=== PATIENT | male | born 1980 | race Caucasian/White ===

== ENCOUNTER 2019-10-01 20:55 | Inpatient (IN) ==
[2019-10-01] MEDS ORDERED: SODIUM CHLORIDE 0.9% 1000ML 1,000 ML IV SCH (21:15)
[2019-10-01] MEDS ORDERED: ERTAPENEM SODIUM 10 ML IV STA (21:21)
[2019-10-01 21:30] LABS: Basophils # (auto) 0.01 K/uL (0-0.2); Basophils % (auto) 0.1 %; Eosinophils # (auto) 0.05 K/uL (0-0.5); Eosinophils % (auto) 0.7 %; Hematocrit (blood only) 38.7 % (42-52); Hemoglobin 13.5 g/dL (14.0-18.0); Immature Granulocytes # (auto) 0.02 K/uL (0.00-0.02); Immature Granulocytes % (auto) 0.3 %; Lymphocytes # (auto) 0.55 K/uL (1.2-3.4); Lymphocytes % (auto) 7.9 %; Mean Corpuscular Hemoglobin 29.8 pg (25-34); Mean Corpuscular Hgb Conc 34.9 g/dL (32-36); Mean Corpuscular Volume 85.4 fL (80-100); Mean Platelet Volume 11.7 fL (7.4-10.4); Monocytes # (auto) 0.06 K/uL (0.11-0.59); Monocytes % (auto) 0.9 %; Neutrophils # (auto) 6.28 K/uL (1.4-6.5); Neutrophils % (auto) 90.1 %; Platelet Count 132 K/uL (130-400); RDW Coefficient of Variation 13.2 % (11.5-14.5); Red Blood Count 4.53 M/uL (4.7-6.1); White Blood Count 6.97 K/uL (4.8-10.8)
[2019-10-01 21:39] LABS: Appearance Urine Cloudy (Clear); Bacteria Urine Automated 3+ (Negative); Bilirubin Urine Negative (Negative); Blood Urine 3+ (Negative); Color Urine Orange; Glucose Urine UA Negative (Negative); Ketones Urine Negative (Negative); Leukocyte Esterase Urine 3+ (Negative); Nitrite Urine Negative (Negative); Protein Urine 2+ (Negative); RBC Urine Automated >30 /hpf (0-4); Specific Gravity Urine 1.014 (1.000-1.030); Urobilinogen Urine Negative (Negative); WBC Urine Automated >30 /hpf (0-5); pH Urine 6.5 (4.5-7.5)
[2019-10-01 21:41] LABS: Partial Thromboplastin Ratio 0.9; Partial Thromboplastin Time 24.3 Seconds (21.0-31.0)
[2019-10-01 21:51] LABS: Albumin Globulin Ratio 1.1 (0.9-2); Albumin Level 3.5 gm/dl (3.4-5.0); Bilirubin,Total 0.9 mg/dl (0.2-1); Calcium 8.6 mg/dl (8.5-10.1); Creatinine Clr Calc Pharmacy 122.6 ml/min; Est GFR (African American) 112.9; Est GFR (Non-African American) 97.4; Globulin 3.3 gm/dl (2.5-4.0); Magnesium 1.5 mg/dl (1.8-2.4); Potassium 3.6 mmol/L (3.5-5.1); Total Protein 6.8 gm/dl (6.4-8.2)
[2019-10-01] MEDS ORDERED: MoRPHine SULFATE 4 MG/ML 1 ML CARP\\VIAL IV STA (22:53)
[2019-10-01] MEDS ORDERED: SODIUM CHLORIDE 0.9% 1000ML 1,000 ML IV ONE (22:55)
--- NOTE | 2019-10-01 23:57 | Emergency Department Note ---
History of Present Illness General Chief complaint: Hematuria Source: patient Mode of arrival: EMS Limitations: no limitations History of Present Illness Provider complaint: Fever and hematuria Maximum Pain Intensity: 10 This is a 39-year-old male who presents to the ED with a chief complaint of fever and hematuria as well as some abdominal pain. The patient states that he was seen by his PCP yesterday at the [facility] and found to have a bladder mass on CT scan. Today he was in [place] and had a cystoscopy with biopsy. This was around 2:45 PM today. The patient states that he developed chills and fever as well as hematuria tonight when he got home. He had a temperature of 102.5 per EMS. The patient was transported by EMS and found to have heart rates in the 130s and a little confusion. The patient presents by EMS. He has no other complaints at this time. Home Medications Home Medications Medication Instructions Recorded Confirmed Type cholecalciferol (vitamin D3) 0 mcg PO DAILY 10/01/19 10/01/19 History [Vitamin D3] cranberry 500 mg PO DAILY 10/01/19 10/01/19 History cyanocobalamin (vitamin B-12) 0 mcg PO DAILY 10/01/19 10/01/19 History [Vitamin B-12] hydrocodone-acetaminophen 1 tab PO DIRECTED PRN 10/01/19 10/01/19 History ondansetron HCl 4 mg PO DIRECTED PRN 10/01/19 10/01/19 History tamsulosin 0.4 mg PO DAILY 10/01/19 10/01/19 History Allergies Allergy/AdvReac Type Severity Reaction Status Date / Time bee venom protein (honey bee) Allergy Severe ANAPHYLAXIS Verified 10/01/19 23:36 Penicillins Allergy Severe projectile Verified 10/01/19 23:36 vomiting Past Med/Surg History Medical History Kidney stone on right side Family History Other No significant family history Social History Smoking Status: Former smoker Preferred Language: Vietnamese Feels Safe at Home: Yes Review of Systems A total of 10 systems reviewed and were otherwise negative Physical Exam Vital Signs Vital Signs - 24 hr 10/01/19 21:05 10/01/19 21:07 10/01/19 21:15 Temperature Temperature Source Pulse Rate 128 H 123 H 126 H Pulse Rate from SpO2 Sensor 126 H 124 H 128 H Respiratory Rate 20 22 Respiratory Effort / Characteristics Blood Pressure 139/79 130/88 Blood Pressure Mean 94 98 Pulse Oximetry 96 96 96 Oxygen Delivery Method Sepsis Recent Fever Within 48 Hours Sepsis New/Unexplained Change in Mental Status Sepsis Action Taken by Nursing 10/01/19 21:16 10/01/19 21:25 10/01/19 21:30 Temperature 39.2 C H Temperature Source Oral Pulse Rate 127 H 120 H 126 H Pulse Rate from SpO2 Sensor 121 H 126 H Respiratory Rate 21 20 21 Respiratory Effort / Characteristics Non-Labored Spontaneous Blood Pressure 139/79 125/71 Blood Pressure Mean 99 76 Pulse Oximetry 96 99 95 Oxygen Delivery Method Room Air Sepsis Recent Fever Within 48 Hours Yes Sepsis New/Unexplained Change in Mental Status No Sepsis Action Taken by Nursing Previously Notified 10/01/19 21:31 10/01/19 21:45 10/01/19 21:46 Temperature Temperature Source Pulse Rate 127 H 121 H 125 H Pulse Rate from SpO2 Sensor 127 H 122 H 126 H Respiratory Rate 21 24 24 Respiratory Effort / Characteristics Blood Pressure 129/75 Blood Pressure Mean 84 Pulse Oximetry 94 96 96 Oxygen Delivery Method Sepsis Recent Fever Within 48 Hours Sepsis New/Unexplained Change in Mental Status Sepsis Action Taken by Nursing 10/01/19 22:00 10/01/19 22:01 10/01/19 22:15 Temperature Temperature Source Pulse Rate 123 H 124 H 117 H Pulse Rate from SpO2 Sensor 122 H 125 H 118 H Respiratory Rate 19 20 19 Respiratory Effort / Characteristics Blood Pressure 119/71 125/72 Blood Pressure Mean 101 84 Pulse Oximetry 95 95 95 Oxygen Delivery Method Sepsis Recent Fever Within 48 Hours Sepsis New/Unexplained Change in Mental Status Sepsis Action Taken by Nursing 10/01/19 22:16 10/01/19 23:00 10/01/19 23:16 Temperature 39.1 C H Temperature Source Oral Pulse Rate 116 H 115 H Pulse Rate from SpO2 Sensor 115 H Respiratory Rate 18 14 Respiratory Effort / Characteristics Blood Pressure 117/75 Blood Pressure Mean 84 Pulse Oximetry 94 93 Oxygen Delivery Method Sepsis Recent Fever Within 48 Hours Sepsis New/Unexplained Change in Mental Status Sepsis Action Taken by Nursing CONSTITUTIONAL/VITAL SIGNS: Reviewed / noted above. GENERAL: Non-toxic in appearance. INTEGUMENTARY: Warm, dry, and [place]. HEAD: Normocephalic. EYES: without scleral icterus or trauma. ENT/OROPHARYNX: clear and moist. LYMPHADENOPATHY/NECK: Is supple without lymphadenopathy or meningismus. RESPIRATORY: Lungs clear and equal. CARDIOVASCULAR: Tachycardic rate and regular rhythm GI/ABDOMEN: Soft and mildly tender in the suprapubic area. No organomegaly or pulsatile mass. No rebound or guarding. Normal bowel sounds. EXTREMITIES: Warm and well perfused. BACK: No CVA tenderness. NEUROLOGICAL: Intact without focal deficits. PSYCHIATRIC: normal affect. MUSCULOSKELETAL: Normally developed with good muscle tone. TRIAGE NURSING DOCUMENTATION REVIEWED. Course Administered Medications Discontinued Medications Sodium Chloride (Nss 1000ml) 1,000 mls @ 999 mls/hr IV .Q1H1M TEREZA Stop: 10/01/19 22:15 Last Infusion: 10/01/19 22:54 Dose: 0 mls/hr Documented by: [id number] Admin: 10/01/19 21:53 Dose: 999 mls/hr Documented by: [id number] Ertapenem (Invanz) 10 mls @ 2 mls/min IV NOW STA Stop: 10/01/19 21:25 Last Admin: 10/01/19 21:53 Dose: 2 mls/min Documented by: [id number] Sodium Chloride (Nss 1000ml) 1,000 mls @ 999 mls/hr IV .Q1H1M ONE Stop: 10/01/19 23:55 Last Admin: 10/01/19 23:05 Dose: 999 mls/hr Documented by: [id number] Morphine Sulfate (Morphine Sulfate 4 Mg/Ml 1 Ml Carp\Vial) 4 mg IV NOW STA Stop: 10/01/19 22:54 Last Admin: 10/01/19 23:05 Dose: 4 mg Documented by: [id number] Critical Care Time Critical Care Time: Yes Total Critical Care Time: 30 I have personally spent 30 minutes of critical care time in the direct management of this patient. This includes bedside care, interpretation of diagnostic studies, and testing, discussion with consultants, patient, and family members, and other required patient management activities. This 30 minutes is in excess of all separately billable procedures. Medical Decision Making Differential Diagnosis Differential includes viral illness, influenza, streptococcal pharyngitis, meningitis, pneumonia, sinusitis, UTI, pyelonephritis, otitis media. Medical Records Attestation: I reviewed the patient's medical records. Home Medications Current Medication List: was personally reviewed by me Laboratory Data Attestation: I reviewed the patient's lab results. Result diagrams: 10/01/19 21:15 10/01/19 21:15 Lab Results 10/01/19 10/01/19 10/01/19 Range/Units 21:10 21:15 21:15 WBC 6.97 (4.8-10.8) K/uL RBC 4.53 L (4.7-6.1) M/uL Hgb 13.5 L (14.0-18.0) g/dL Hct 38.7 L (42-52) % MCV 85.4 (80-100) fL MCH 29.8 (25-34) pg MCHC 34.9 (32-36) g/dL RDW Std Deviation 41.0 (36.4-46.3) fL RDW Coeff of Piotr 13.2 (11.5-14.5) % Plt Count 132 (130-400) K/uL MPV 11.7 H (7.4-10.4) fL Immature Gran % (Auto) 0.3 % Neut % (Auto) 90.1 % Lymph % (Auto) 7.9 % Dukes % (Auto) 0.9 % Eos % (Auto) 0.7 % Baso % (Auto) 0.1 % Neut # (Auto) 6.28 (1.4-6.5) K/uL Lymph # (Auto) 0.55 L (1.2-3.4) K/uL Dukes # (Auto) 0.06 L (0.11-0.59) K/uL Eos # (Auto) 0.05 (0-0.5) K/uL Baso # (Auto) 0.01 (0-0.2) K/uL Immature Gran # (Auto) 0.02 (0.00-0.02) K/uL PT 11.0 (9.0-12.0) Seconds INR 1.0 (0.9-1.1) APTT 24.3 (21.0-31.0) Seconds PTT Ratio 0.9 Sodium (136-145) mmol/L Potassium (3.5-5.1) mmol/L Chloride (98-107) mmol/L Carbon Dioxide (21-32) mmol/L Anion Gap (3-11) BUN (7-18) mg/dl Creatinine (0.6-1.4) mg/dl Est Cr Clr Drug Dosing ml/min Est GFR ( Amer) Est GFR (Non-Af Amer) BUN/Creatinine Ratio (10-20) Glucose (70-99) mg/dl Lactate (0.4-2.0) mmol/L Calcium (8.5-10.1) mg/dl Magnesium (1.8-2.4) mg/dl Total Bilirubin (0.2-1) mg/dl AST (15-37) U/L ALT (12-78) U/L Alkaline Phosphatase (45-117) U/L Total Protein (6.4-8.2) gm/dl Albumin (3.4-5.0) gm/dl Globulin (2.5-4.0) gm/dl Albumin/Globulin Ratio (0.9-2) Urine Color [place] Urine Appearance Cloudy A (Clear) Urine pH 6.5 (4.5-7.5) Ur Specific [place] 1.014 (1.000-1.030) Urine Protein 2+ H (Negative) Urine Glucose (UA) Negative (Negative) Urine Ketones Negative (Negative) Urine Blood 3+ H (Negative) Urine Nitrite Negative (Negative) Urine Bilirubin Negative (Negative) Urine Urobilinogen Negative (Negative) Ur Leukocyte Esterase 3+ H (Negative) Urine WBC (Auto) >30 H (0-5) /hpf Urine RBC (Auto) >30 H (0-4) /hpf U Hyaline Cast (Auto) 1-5 (0-5) /lpf U Epithel Cells (Auto) 5-10 H (0-5) /lpf Urine Bacteria (Auto) 3+ H (Negative) 10/01/19 10/01/19 Range/Units 21:15 21:15 WBC (4.8-10.8) K/uL RBC (4.7-6.1) M/uL Hgb (14.0-18.0) g/dL Hct (42-52) % MCV (80-100) fL MCH (25-34) pg MCHC (32-36) g/dL RDW Std Deviation (36.4-46.3) fL RDW Coeff of Piotr (11.5-14.5) % Plt Count (130-400) K/uL MPV (7.4-10.4) fL Immature Gran % (Auto) % Neut % (Auto) % Lymph % (Auto) % Dukes % (Auto) % Eos % (Auto) % Baso % (Auto) % Neut # (Auto) (1.4-6.5) K/uL Lymph # (Auto) (1.2-3.4) K/uL Dukes # (Auto) (0.11-0.59) K/uL Eos # (Auto) (0-0.5) K/uL Baso # (Auto) (0-0.2) K/uL Immature Gran # (Auto) (0.00-0.02) K/uL PT (9.0-12.0) Seconds INR (0.9-1.1) APTT (21.0-31.0) Seconds PTT Ratio Sodium 135 L (136-145) mmol/L Potassium 3.6 (3.5-5.1) mmol/L Chloride 105 (98-107) mmol/L Carbon Dioxide 24 (21-32) mmol/L Anion Gap 6.0 (3-11) BUN 13 (7-18) mg/dl Creatinine 0.98 (0.6-1.4) mg/dl Est Cr Clr Drug Dosing 122.6 ml/min Est GFR ( Amer) 112.9 Est GFR (Non-Af Amer) 97.4 BUN/Creatinine Ratio 13.0 (10-20) Glucose 108 H (70-99) mg/dl Lactate 1.7 (0.4-2.0) mmol/L Calcium 8.6 (8.5-10.1) mg/dl Magnesium 1.5 L (1.8-2.4) mg/dl Total Bilirubin 0.9 (0.2-1) mg/dl AST 17 (15-37) U/L ALT 33 (12-78) U/L Alkaline Phosphatase 79 (45-117) U/L Total Protein 6.8 (6.4-8.2) gm/dl Albumin 3.5 (3.4-5.0) gm/dl Globulin 3.3 (2.5-4.0) gm/dl Albumin/Globulin Ratio 1.1 (0.9-2) Urine Color Urine Appearance (Clear) Urine pH (4.5-7.5) Ur Specific [place] (1.000-1.030) Urine Protein (Negative) Urine Glucose (UA) (Negative) Urine Ketones (Negative) Urine Blood (Negative) Urine Nitrite (Negative) Urine Bilirubin (Negative) Urine Urobilinogen (Negative) Ur Leukocyte Esterase (Negative) Urine WBC (Auto) (0-5) /hpf Urine RBC (Auto) (0-4) /hpf U Hyaline Cast (Auto) (0-5) /lpf U Epithel Cells (Auto) (0-5) /lpf Urine Bacteria (Auto) (Negative) Imaging Data Attestation: I personally reviewed and interpreted this imaging study as fol lows: My Impression: Chest x-ray: Per my interpretation there is no acute disease no pneumothorax. No pneumonia. ECG Data Attestation: I personally reviewed and interpreted this ECG as follows: Indication: + weakness Rate (beats per minute): 126 Rhythm: + sinus tachycardia ECG Intervals/blocks: + Normal QT-c ECG ST segments: no ST elevation ECG Findings: no PVCs MDM Narrative The patient presents with a fever and tachycardia after having a biopsy of the bladder earlier today. His symptoms are consistent with urosepsis and bacteremia. The patient was empirically treated with ertapenem. He was given a liter of IV fluids normal saline prehospital. He was given 2 L of normal saline here. The patient will be seen by the hospitalist for further inpatient evaluation and care. He was evaluated several times during his ED stay to ascertain stability. Impression & Plan Sepsis, Urinary tract infection Discharge Plan Visit Data Chief Complaint: Hematuria ED Provider: Marco Antonio Andrews Discharge Problem: Sepsis, Urinary tract infection Patient Disposition: Being Evaluated by Hospitalist Forms Stand Alone Forms: My [facility] Prescriptions Prescriptions: No Action hydrocodone-acetaminophen 5-325 mg tablet 1 tab PO DIRECTED PRN (Reason: Pain) RF: 0 ondansetron HCl 4 mg tablet 4 mg PO DIRECTED PRN (Reason: Nausea) RF: 0 cyanocobalamin (vitamin B-12) [Vitamin B-12] 1,000 mcg Tablet 0 mcg PO DAILY RF: 0 tamsulosin 0.4 mg capsule 0.4 mg PO DAILY RF: 0 cranberry 500 mg Capsule 500 mg PO DAILY RF: 0 cholecalciferol (vitamin D3) [Vitamin D3] 25 mcg (1,000 unit) Capsule 0 mcg PO DAILY RF: 0 Referrals Referrals: PCP,NO [Primary Care Provider] - Discharge Problem: Sepsis Qualifiers: Sepsis type: sepsis due to unspecified organism Sepsis acute organ dysfunction status: with acute organ dysfunction Severe sepsis acute organ dysfunction type: encephalopathy Severe sepsis shock status: without septic shock Qualified Code(s): A41.9 - Sepsis, unspecified organism Urinary tract infection Qualifiers: Urinary tract infection type: acute cystitis Hematuria presence: with hematuria Qualified Code(s): N30.01 - Acute cystitis with hematuria
[2019-10-02] MEDS ORDERED: IBUPROFEN 200 MG TAB PO ONE (00:25)
[2019-10-02] MEDS ORDERED: HYDROmorphone INJ 0.5 MG/0.5 ML SYR IV STA (00:38)
[2019-10-02] MEDS ORDERED: SODIUM CHLORIDE 0.9% 500 ML IV SCH (00:45)
--- NOTE | 2019-10-02 02:37 | History and Physical Report ---
DATE OF ADMISSION: 10/01/2019 CHIEF COMPLAINT: Sepsis. HISTORY OF PRESENT ILLNESS: This is a 39-year-old male with past medical history significant for anxiety, panic disorder, and kidney stones. The patient has history of kidney stones, came to family doctor on 09/30/2019 because of right flank pain. The patient states on Saturday morning, he woke up, he noticed some pinkish urine and on Saturday, he had severe right flank pain and on Saturday started having blood clots and went to PCP's office and CT scan of the abdomen and pelvis was done which showed nonobstructive nephrolithiasis, dilated left ureter to the level of urinary bladder, limited assessment to the stricture, possible focal mass of the left ureterovesical junction. Follow up cystoscopy and ureteroscopy recommended, so the patient on 10/01/2019 went to [place] and had a cystoscopy done. The bladder mucosa showed several areas with raised lesions of unclear significance. Several areas of erythema were noted in the bladder mucosa. Ureteral orifices are of normal position and configuration and the bladder washing was performed to obtain cytology specimen and formal endoscopic evaluation in the Operating Room was recommended and the patient was discharged home. The patient states after coming home, he suddenly felt that he is going to . He could not move. He was passing out in and out and also had severe pain in the right flank region. Finally was able to call and was brought in here. T-max is 39.4. He is tachycardic and the heart rates in the 120s. Blood pressure was okay. White count was okay. Magnesium was 1.5. Urine was positive for +3 blood and +3 leukocyte esterase and +3 bacteria. Chest x-ray was okay. The patient was started on Invanz because of ALLERGIC TO PENICILLIN. Given fluids and given morphine for pain. States his pain is coming back. Currently resting comfortably. Still spiking temperatures, getting Motrin by the ER. The patient complains of some mild headache and dizziness and some blurred visions and some shortness of breath attributes for panic disorder. He has some runny nose attributes to allergies. He has cough going on for last 1 month. Denies any earache. No sore throat. No loss of sense of smell or taste. During this episode, he had 1 episode of chest pain, but that is resolved now Has burning micturition. In the ER, his urine was clear. Normal bladder movements. Currently no rash, no swelling in the legs. The patient says one of his family member had COVID and he was exposed to him before he was diagnosed, but it was about 6 weeks ago. ALLERGIES: BEE VENOM, PENICILLINS. PAST MEDICAL HISTORY: As mentioned above. PAST SURGICAL HISTORY: Hand surgery, cystoscopy. MEDICATIONS: Currently the patient is on vitamin D, cranberry 500 mg p.o. daily, vitamin B12 1000 mcg p.o. daily, hydrocodone/acetaminophen p.r.n., Zofran 4 mg p.r.n., Flomax 0.4 mg p.o. daily. FAMILY HISTORY: Significant for maternal grandfather of heart attack. SOCIAL HISTORY: . Former smoker, quit in 02/2019. Alcohol, 8-9 drinks per week. No drug use. REVIEW OF SYMPTOMS: As per HPI. Rest of review of symptoms negative. PHYSICAL EXAMINATION: GENERAL: The patient is of moderate build, not in acute distress. VITAL SIGNS: T-max 39.4, pulse 112, respiratory rate 19, blood pressure 115/66, oxygen 94% on room air. HEENT: No pallor, no icterus. NECK: No JVD, no neck masses. CARDIOVASCULAR SYSTEM: S1, S2 heard. Regular rate and rhythm. No murmur, no gallop. RESPIRATORY SYSTEM: Normal AP diameter. No accessory muscle use. No wheezing, no crackles. ABDOMEN: Soft, bowel sounds present. Mild diffuse discomfort. No guarding, no rigidity. No distention. CENTRAL NERVOUS SYSTEM: Cranial nerves II-XII grossly intact, nonfocal. EXTREMITIES: No edema, no erythema. LABORATORY DATA: WBC 6.9, hb 13.5, hematocrit 38.7, platelets 132. PT 11, INR 1, APTT 24.3. Sodium 135, potassium 3.6, chloride 105, bicarb 24, BUN 13, creatinine 0.9, serum glucose 108, lactate 1.7, calcium 8.6, magnesium 1.5. Total bilirubin 0.9, AST 17, ALT 33, alkaline phosphatase 79. Urinalysis: Cloudy, +3 blood, +3 leukocyte esterase, +3 bacteria. IMAGING: Chest x-ray: No acute findings seen. EKG: Sinus tachycardia, rate of 123, no previous ECGs available. ASSESSMENT AND PLAN: This is a 39-year-old male who presents with sepsis. 1. Sepsis . Meets criteria with tachycardia, temp spike, positive UA. Had a cystoscopy today. THE PATIENT IS ALLERGIC TO PENICILLIN. Received Invanz in the ER. We will continue with Invanz and vancomycin until cultures are back. Aggressive IV fluids. Lactate was normal. Closely monitor in the tele floor. Continue his Flomax. 2. History of kidney stones, on Flomax. Follow with Urology. 3. Bladder lesions. Plan for endoscopic evaluation in the Operating Room by Urology. 4. Deep venous thrombosis prophylaxis. SCDs for now. DISPOSITION: Closely monitor in tele floor. Level 1 full code. MTDD
[2019-10-02] MEDS ORDERED: ONDANSETRON INJ 2 MG/ML 2 ML VIAL IV PRN (02:49)
[2019-10-02] MEDS ORDERED: VANCOMYCIN HCL 1,000 MG in SODIUM CHLORIDE 0.9% 250 ML IV SCH (02:49)
[2019-10-02] MEDS ORDERED: VANCOMYCIN CONSULT ACTIVE PRN (02:49)
[2019-10-02] MEDS ORDERED: ERTAPENEM CONSULT ACTIVE PRN (02:53)
[2019-10-02] MEDS: SODIUM CHLORIDE 0.9% 1000ML 1,000 ML IV SCH ×3 (03:13→19:06)
[2019-10-02] MEDS: HYDROmorphone INJ 0.5 MG/0.5 ML SYR IV PRN ×3 (03:16→13:11)
[2019-10-02] MEDS ORDERED: VANCOMYCIN HCL 2,250 MG in SODIUM CHLORIDE 0.9% 500 ML IV SCH (03:30)
[2019-10-02 06:29] LABS: Basophils # (auto) 0.01 K/uL (0-0.2); Basophils % (auto) 0.1 %; Eosinophils # (auto) 0.01 K/uL (0-0.5); Eosinophils % (auto) 0.1 %; Hematocrit (blood only) 40.8 % (42-52); Hemoglobin 13.6 g/dL (14.0-18.0); Immature Granulocytes # (auto) 0.03 K/uL (0.00-0.02); Immature Granulocytes % (auto) 0.3 %; Lymphocytes # (auto) 0.57 K/uL (1.2-3.4); Lymphocytes % (auto) 6.1 %; Mean Corpuscular Hemoglobin 29.1 pg (25-34); Mean Corpuscular Hgb Conc 33.3 g/dL (32-36); Mean Corpuscular Volume 87.4 fL (80-100); Monocytes # (auto) 0.36 K/uL (0.11-0.59); Monocytes % (auto) 3.9 %; Neutrophils # (auto) 8.29 K/uL (1.4-6.5); Neutrophils % (auto) 89.5 %; Platelet Count 123 K/uL (130-400); RDW Coefficient of Variation 13.3 % (11.5-14.5); RDW Standard Deviation 42.3 fL (36.4-46.3); Red Blood Count 4.67 M/uL (4.7-6.1); White Blood Count 9.27 K/uL (4.8-10.8)
[2019-10-02 07:01] LABS: BUN Creatinine Ratio 10.1 (10-20); Calcium 7.9 mg/dl (8.5-10.1); Creatinine Clr Calc Pharmacy 125.8 ml/min; Est GFR (African American) 123.5; Est GFR (Non-African American) 106.5; Magnesium 1.7 mg/dl (1.8-2.4); Potassium 4.1 mmol/L (3.5-5.1)
--- NOTE | 2019-10-02 07:44 | XRay Report ---
XR chest 1V portable HISTORY: SEPSIS COMPARISON: Chest 02/14/2019. FINDINGS: The lungs are clear. Cardiac silhouette is normal in size. No pleural effusions. No pneumot horax. IMPRESSION: No acute process. ACT 112: Negative or not required by law. Electronically signed by: Pritesh Duarte M.D. 10/02/2019 7:42 AM
[2019-10-02] MEDS ORDERED: PHENAZOPYRIDINE HCL 200 MG TAB PO PRN (08:00)
[2019-10-02] MEDS: CHOLECALCIFEROL 1,000 UNITS 25 MCG TAB PO SCH (08:44)
[2019-10-02] MEDS: TAMSULOSIN HCL 0.4 MG CAP PO SCH (08:44)
[2019-10-02] MEDS: CYANOCOBALAMIN 500 MCG TABLET (VITAMIN B-12) PO SCH (08:44)
[2019-10-02] MEDS: ACETAMINOPHEN 325 MG TAB PO PRN ×2 (11:46→23:29)
[2019-10-02] MEDS ORDERED: VANCOMYCIN HCL 1,250 MG in SODIUM CHLORIDE 0.9% 250 ML IV SCH (12:00)
--- NOTE | 2019-10-02 13:07 | Hospitalist Progress Note ---
Date of Service October 02, 2019 Assessment & Plan (1) Sepsis: Presented with fever, chills and profound weakness and met sepsis criteria on admission Status post cystoscopy on 10/01/2019 noted to have a bladder lesion and cytology has been pending Has UTI with urine blood culture growing gram-negative bacilli Has been on ertapenem and awaiting sensitivity Has been feeling a lot better with decreasing symptoms Likely be discharged tomorrow Gram-negative bacteremia Awaiting further identification (2) Urinary tract infection: Status post cystoscopy on 10/01/2019 Presented with dysuria and frequency with hematuria Hematuria has been resolved (3) Kidney stone on right side: No pain (4) Lesion of urinary bladder: Presented to [place] with hematuria Underwent cystoscopy which showed bladder lesion Cytology has been pending He supposed to have formal cystoscopy sometime in the near future (5) JORDI (generalized anxiety disorder): Has generalized anxiety disorder with panic attacks Denies any acute symptoms DVT prophylaxis SCDs Increase ambulation CODE STATUS Full Admission and Anticipated Discharge Date Admission Date: October 02, 2019 Subjective 10/02/2019 The patient was seen and examined in telemetry unit He has been feeling a lot better since admission Denies any fever and/or chills, has dysuria and the weakness has been improving Review of Systems Review of Systems: All systems reviewed and are unremarkable except as noted below Constitutional: + weakness Genitourinary: + dysuria and + urinary frequency; no flank pain Physical Exam Physical Exam: Lying in bed comfortably Constitutional: well developed, well nourished and + ill appearing; no acute distress Eyes: PERRL, conjunctivae normal, anicteric sclerae ENMT: external ear and nose normal, oropharynx normal Neck: trachea midline, no thyromegaly Respiratory: normal respiratory effort; no respiratory distress Auscultation: lungs clear to auscultation bilaterally Cardiovascular: Rate/Rhythm: regular rate and regular rhythm Heart Sounds: no murmur Gastrointestinal (Abdomen): Inspection/Auscultation: normal bowel sounds; abdomen not distended Percussion/Palpation: + abdomen tender (Mildly tender hypogastrium and right renal angle) and abdomen soft Musculoskeletal: No acute arthritis involving any joints Results & Data Results & Data ([facility]) Vital Signs (Past 12 Hours) Vital Signs Temp Pulse Pulse Resp BP BP BP 10/02/19 11:41 37.3 C 92 H 108/68 10/02/19 07:10 37.1 C 95 H 20 104/67 10/02/19 02:51 36.9 C 101 H 18 104/66 10/02/19 02:19 37.1 C 10/02/19 02:15 102 H 18 103/70 10/02/19 01:45 106 H 22 102/67 10/02/19 01:15 110 H 19 108/68 10/02/19 01:01 37.9 C H Pulse Ox 10/02/19 11:41 95 10/02/19 07:10 96 10/02/19 02:51 94 10/02/19 02:19 10/02/19 02:15 93 10/02/19 01:45 92 10/02/19 01:15 91 10/02/19 01:01 Laboratory Results Short CBC 10/01/19 10/02/19 Range/Units 21:15 06:15 WBC 6.97 9.27 (4.8-10.8) K/uL Hgb 13.5 L 13.6 L (14.0-18.0) g/dL Hct 38.7 L 40.8 L (42-52) % Plt Count 132 123 L (130-400) K/uL BMP 10/01/19 10/02/19 21:15 06:15 Sodium 135 L 139 Potassium 3.6 4.1 Chloride 105 107 Carbon Dioxide 24 27 BUN 13 9 Creatinine 0.98 0.91 Glucose 108 H 126 H Calcium 8.6 7.9 L Liver Function 10/01/19 Range/Units 21:15 Total Bilirubin 0.9 (0.2-1) mg/dl AST 17 (15-37) U/L ALT 33 (12-78) U/L Alkaline Phosphatase 79 (45-117) U/L Albumin 3.5 (3.4-5.0) gm/dl Urine 10/01/19 Range/Units 21:10 Urine Color [place] Urine Appearance Cloudy A (Clear) Urine pH 6.5 (4.5-7.5) Ur Specific [place] 1.014 (1.000-1.030) Urine Protein 2+ H (Negative) Urine Glucose (UA) Negative (Negative) Medications Administered Current Inpatient Medications Acetaminophen (Acetaminophen 325 Mg Tab) 650 mg PO Q4H PRN PRN Reason: Pain or Fever Stop: 11/01/19 02:48 Last Admin: 10/02/19 11:46 Dose: 650 mg Documented by: Cyanocobalamin (Cyanocobalamin 500 Mcg Tablet (Vitamin B-12)) 500 mcg PO DAILY TEREZA Stop: 11/01/19 08:59 Last Admin: 10/02/19 08:44 Dose: 500 mcg Documented by: Diphenhydramine HCl (Diphenhydramine Hcl 25 Mg Cap) 25 mg PO Q6H PRN PRN Reason: Rash Stop: 11/01/19 07:59 Ertapenem (Ertapenem Consult Active) 1 ea N/A UD PRN PRN Reason: Consult Stop: 11/01/19 02:52 Hydromorphone HCl (Hydromorphone Inj 0.5 Mg/0.5 Ml Syr) 0.5 mg IV Q3H PRN PRN Reason: Pain Stop: 10/16/19 02:48 Last Admin: 10/02/19 07:36 Dose: 0.5 mg Documented by: Sodium Chloride (Nss 1000ml) 1,000 mls @ 125 mls/hr IV .Q8H TEREZA Stop: 11/01/19 02:48 Last Admin: 10/02/19 10:52 Dose: 125 mls/hr Documented by: Ertapenem 1,000 mg/ Sodium (Chloride) 60 mls @ 100 mls/hr IV Q24H [facility] Stop: 10/10/19 21:35 Ondansetron HCl (Ondansetron Inj 2 Mg/Ml 2 Ml Vial) 4 mg IV Q6H PRN PRN Reason: Nausea Stop: 11/01/19 02:48 Last Admin: 10/02/19 07:35 Dose: 4 mg Documented by: Phenazopyridine HCl (Phenazopyridine Hcl 200 Mg Tab) 200 mg PO TID PRN PRN Reason: Dysuria Stop: 11/01/19 07:59 Last Admin: 10/02/19 08:44 Dose: 200 mg Documented by: Tamsulosin HCl (Tamsulosin Hcl 0.4 Mg Cap) 0.4 mg PO DAILY [facility] Stop: 11/01/19 08:59 Last Admin: 10/02/19 08:44 Dose: 0.4 mg Documented by: Vitamin D (Cholecalciferol 1,000 Units 25 Mcg Tab) 1,000 units PO DAILY [facility] Stop: 11/01/19 08:59 Last Admin: 10/02/19 08:44 Dose: 1,000 units Documented by: (1) Sepsis Sepsis acute organ dysfunction status: with acute organ dysfunction Sepsis type: sepsis due to unspecified organism Severe sepsis acute organ dysfunction type: encephalopathy Severe sepsis shock status: without septic shock Qualified Code(s): A41.9 - Sepsis, unspecified organism; R65.20 - Severe sepsis without septic shock; G93.40 - Encephalopathy, unspecified (2) Urinary tract infection Hematuria presence: with hematuria Urinary tract infection type: acute cystitis Qualified Code(s): N30.01 - Acute cystitis with hematuria
--- NOTE | 2019-10-02 14:49 | Electrocardiogram Report ---
Test Reason : Blood Pressure : / mmHG Vent. Rate : 123 BPM Atrial Rate : 123 BPM P-R Int : 158 ms QRS Dur : 084 ms QT Int : 296 ms P-R-T Axes : 054 000 043 degrees QTc Int : 423 ms Sinus tachycardia Otherwise normal ECG No previous ECGs available Confirmed by Srinivas Carmona ([id number]) on 10/02/2019 2:48:53 PM Referred By: REFERRED SELF Confirmed By:Srinivas Carmona
[2019-10-02] MEDS: MoRPHine SULFATE 4 MG/ML 1 ML CARP\\VIAL IV PRN (18:08)
[2019-10-02] MEDS: ERTAPENEM SODIUM 1,000 MG in SODIUM CHLORIDE 0.9% 50 ML IV SCH (19:06)
[2019-10-02] MEDS ORDERED: MoRPHine SULFATE 4 MG/ML 1 ML CARP\\VIAL IV STA (21:23)
[2019-10-03] MEDS: SODIUM CHLORIDE 0.9% 1000ML 1,000 ML IV SCH ×2 (03:58→11:25)
[2019-10-03 06:43] LABS: Basophils # (auto) 0.01 K/uL (0-0.2); Basophils % (auto) 0.2 %; Hematocrit (blood only) 39.5 % (42-52); Hemoglobin 13.4 g/dL (14.0-18.0); Immature Granulocytes # (auto) 0.01 K/uL (0.00-0.02); Immature Granulocytes % (auto) 0.2 %; Lymphocytes # (auto) 1.25 K/uL (1.2-3.4); Mean Corpuscular Hemoglobin 29.6 pg (25-34); Mean Corpuscular Hgb Conc 33.9 g/dL (32-36); Mean Corpuscular Volume 87.2 fL (80-100); Mean Platelet Volume 11.1 fL (7.4-10.4); Neutrophils # (auto) 3.13 K/uL (1.4-6.5); Neutrophils % (auto) 62.6 %; Platelet Count 120 K/uL (130-400); RDW Coefficient of Variation 13.2 % (11.5-14.5); RDW Standard Deviation 42.7 fL (36.4-46.3); Red Blood Count 4.53 M/uL (4.7-6.1)
[2019-10-03 07:09] LABS: BUN Creatinine Ratio 8.3 (10-20); Calcium 8.6 mg/dl (8.5-10.1); Creatinine Clr Calc Pharmacy 142.6 ml/min; Est GFR (African American) 130.7; Est GFR (Non-African American) 112.7; Potassium 3.9 mmol/L (3.5-5.1)
[2019-10-03] MEDS: CYANOCOBALAMIN 500 MCG TABLET (VITAMIN B-12) PO SCH (08:32)
[2019-10-03] MEDS: TAMSULOSIN HCL 0.4 MG CAP PO SCH (08:32)
[2019-10-03] MEDS: CHOLECALCIFEROL 1,000 UNITS 25 MCG TAB PO SCH (08:32)
--- NOTE | 2019-10-03 12:25 | Hospitalist Progress Note ---
Date of Service October 03, 2019 Assessment & Plan (1) Sepsis: Presented with fever, chills and profound weakness and met sepsis criteria on admission Status post cystoscopy on 10/01/2019 noted to have a bladder lesion and cytology has been pending Has UTI with urine blood culture growing gram-negative bacilli Has been on ertapenem and awaiting sensitivity Has been feeling a lot better with decreasing symptoms Denies any symptoms and wants to go home Gram-negative bacteremia Awaiting further identification to give correct antibiotic on discharge (2) Urinary tract infection: Status post cystoscopy on 10/01/2019 Presented with dysuria and frequency with hematuria Hematuria has been resolved Urine culture is growing gram-negative bacilli and blood culture is growing gram-negative bacilli 1 out of 2 Has any further sensitivity yet If it is sensitive to Levaquin the patient will be going home on oral antibiotic (3) Kidney stone on right side: No pain (4) Lesion of urinary bladder: Presented to [place] with hematuria Underwent cystoscopy which showed bladder lesion Cytology has been pending He supposed to have formal cystoscopy sometime in the near future (5) JORDI (generalized anxiety disorder): Has generalized anxiety disorder with panic attacks Denies any acute symptoms DVT prophylaxis SCDs Increase ambulation CODE STATUS Full Admission and Anticipated Discharge Date Admission Date: October 02, 2019 Subjective 10/02/2019 The patient was seen and examined in telemetry unit He has been feeling a lot better since admission Denies any fever and/or chills, has dysuria and the weakness has been improving 10/03/2019 The patient was seen and examined in telemetry unit He has been feeling a lot better and denies any fever and/or chills, no abdominal pain nausea no vomiting and no more hematuria Review of Systems Review of Systems: All systems reviewed and are unremarkable except as noted below Constitutional: no weakness Genitourinary: + urinary frequency; no dysuria and no flank pain Physical Exam Physical Exam: Lying in bed comfortably Constitutional: well developed, well nourished and + ill appearing; no acute distress Eyes: PERRL, conjunctivae normal, anicteric sclerae ENMT: external ear and nose normal, oropharynx normal Neck: trachea midline, no thyromegaly Respiratory: normal respiratory effort; no respiratory distress Auscultation: lungs clear to auscultation bilaterally Cardiovascular: Rate/Rhythm: regular rate and regular rhythm Heart Sounds: no murmur Gastrointestinal (Abdomen): Inspection/Auscultation: normal bowel sounds; abdomen not distended Percussion/Palpation: + abdomen tender (Mildly tender hypogastrium and right renal angle) and abdomen soft Musculoskeletal: No acute arthritis involving any joints Skin: no rashes, warm and dry Lymphatic: no cervical or axillary lymphadenopathy Results & Data Results & Data ([facility]) Vital Signs (Past 12 Hours) Vital Signs Temp Pulse Pulse Resp BP Pulse Ox 10/03/19 11:27 36.7 C 82 16 114/76 95 10/03/19 08:18 37 C 75 16 111/69 98 10/03/19 03:37 36.9 C 74 18 108/67 95 Laboratory Results Short CBC 10/03/19 Range/Units 05:56 WBC 5.00 (4.8-10.8) K/uL Hgb 13.4 L (14.0-18.0) g/dL Hct 39.5 L (42-52) % Plt Count 120 L (130-400) K/uL BMP 10/03/19 05:56 Sodium 140 Potassium 3.9 Chloride 107 Carbon Dioxide 28 BUN 7 Creatinine 0.81 Glucose 88 Calcium 8.6 Medications Administered Current Inpatient Medications Acetaminophen (Acetaminophen 325 Mg Tab) 650 mg PO Q4H PRN PRN Reason: Pain or Fever Stop: 11/01/19 02:48 Last Admin: 10/02/19 23:29 Dose: 650 mg Documented by: Cyanocobalamin (Cyanocobalamin 500 Mcg Tablet (Vitamin B-12)) 500 mcg PO DAILY TEREZA Stop: 11/01/19 08:59 Last Admin: 10/03/19 08:32 Dose: 500 mcg Documented by: Diphenhydramine HCl (Diphenhydramine Hcl 25 Mg Cap) 25 mg PO Q6H PRN PRN Reason: Rash Stop: 11/01/19 07:59 Ertapenem (Ertapenem Consult Active) 1 ea N/A UD PRN PRN Reason: Consult Stop: 11/01/19 02:52 Ertapenem 1,000 mg/ Sodium (Chloride) 60 mls @ 100 mls/hr IV Q24H TEREZA Stop: 10/10/19 21:35 Last Infusion: 10/02/19 20:18 Dose: Infused Documented by: Morphine Sulfate (Morphine Sulfate 4 Mg/Ml 1 Ml Carp\Vial) 4 mg IV Q4H PRN PRN Reason: Pain Stop: 10/16/19 16:15 Last Admin: 10/02/19 18:08 Dose: 4 mg Documented by: Ondansetron HCl (Ondansetron Inj 2 Mg/Ml 2 Ml Vial) 4 mg IV Q6H PRN PRN Reason: Nausea Stop: 11/01/19 02:48 Last Admin: 10/02/19 07:35 Dose: 4 mg Documented by: Phenazopyridine HCl (Phenazopyridine Hcl 200 Mg Tab) 200 mg PO TID PRN PRN Reason: Dysuria Stop: 11/01/19 07:59 Last Admin: 10/02/19 08:44 Dose: 200 mg Documented by: Tamsulosin HCl (Tamsulosin Hcl 0.4 Mg Cap) 0.4 mg PO DAILY TEREZA Stop: 11/01/19 08:59 Last Admin: 10/03/19 08:32 Dose: 0.4 mg Documented by: Vitamin D (Cholecalciferol 1,000 Units 25 Mcg Tab) 1,000 units PO DAILY TEREZA Stop: 11/01/19 08:59 Last Admin: 10/03/19 08:32 Dose: 1,000 units Documented by: (1) Sepsis Sepsis acute organ dysfunction status: with acute organ dysfunction Sepsis type: sepsis due to unspecified organism Severe sepsis acute organ dysfunction type: encephalopathy Severe sepsis shock status: without septic shock Qualified Code(s): A41.9 - Sepsis, unspecified organism; R65.20 - Severe sepsis without septic shock; G93.40 - Encephalopathy, unspecified (2) Urinary tract infection Hematuria presence: with hematuria Urinary tract infection type: acute cystitis Qualified Code(s): N30.01 - Acute cystitis with hematuria
[2019-10-03] MEDS: MoRPHine SULFATE 4 MG/ML 1 ML CARP\\VIAL IV PRN (19:19)
[2019-10-03] MEDS: ERTAPENEM SODIUM 1,000 MG in SODIUM CHLORIDE 0.9% 50 ML IV SCH (20:18)
[2019-10-03] MEDS ORDERED: CALCIUM CARBONATE 500 MG CHEWABLE TAB PO PRN (22:05)
[2019-10-04] MEDS: ACETAMINOPHEN 325 MG TAB PO PRN (08:00)
[2019-10-04] MEDS: CYANOCOBALAMIN 500 MCG TABLET (VITAMIN B-12) PO SCH (08:01)
[2019-10-04] MEDS: MoRPHine SULFATE 4 MG/ML 1 ML CARP\\VIAL IV PRN (08:01)
[2019-10-04] MEDS: CHOLECALCIFEROL 1,000 UNITS 25 MCG TAB PO SCH (08:01)
[2019-10-04] MEDS: TAMSULOSIN HCL 0.4 MG CAP PO SCH (08:01)
[2019-10-04] MEDS ORDERED: LEVOFLOXACIN/D5W 750 MG/150 ML BAG IV SCH (11:00)
[2019-10-04] MEDS ORDERED: OXYCODONE/ACETAMINOPHEN 5mg/325mg TAB PO PRN (11:08)
--- NOTE | 2019-10-04 11:15 | Hospitalist Progress Note ---
Date of Service October 04, 2019 Assessment & Plan (1) Sepsis: Presented with fever, chills and profound weakness and met sepsis criteria on admission Status post cystoscopy on 10/01/2019 noted to have a bladder lesion and cytology has been pending Has UTI with urine blood culture growing gram-negative bacilli Has been on ertapenem and awaiting sensitivity Has been feeling a lot better with decreasing symptoms Denies any symptoms and wants to go home Gram-negative bacteremia Urine and blood culture grew E. coli sensitive to quinolones Will start Levaquin and he will be discharged this afternoon to complete a total of 14 days course (2) Urinary tract infection: Status post cystoscopy on 10/01/2019 Presented with dysuria and frequency with hematuria Hematuria has been resolved Urine culture is growing gram-negative bacilli and blood culture is growing gram-negative bacilli 1 out of 2 Urine culture grew E. coli sensitive to quinolones and resistant to cephalosporins Will give Levaquin to finish the course of 14 days of antibiotic in total (3) Kidney stone on right side: No pain (4) Lesion of urinary bladder: Presented to [place] with hematuria Underwent cystoscopy which showed bladder lesion Cytology has been pending He supposed to have formal cystoscopy sometime in the near future Complains some pain at the loin (5) JORDI (generalized anxiety disorder): Has generalized anxiety disorder with panic attacks Denies any acute symptoms DVT prophylaxis SCDs Increase ambulation CODE STATUS Full Discharge home this afternoon Admission and Anticipated Discharge Date Admission Date: October 02, 2019 Subjective 10/02/2019 The patient was seen and examined in telemetry unit He has been feeling a lot better since admission Denies any fever and/or chills, has dysuria and the weakness has been improving 10/03/2019 The patient was seen and examined in telemetry unit He has been feeling a lot better and denies any fever and/or chills, no abdominal pain nausea no vomiting and no more hematuria 10/04/2019 The patient was seen and examined in telemetry unit He has been feeling a lot better but he still has some pain in the right l0in without any fever, chills, nausea and/or vomiting He has been ambulating and wants to go home Review of Systems Review of Systems: All systems reviewed and are unremarkable except as noted below Genitourinary: + flank pain; no dysuria and no urinary frequency Physical Exam Physical Exam: Lying in bed comfortably Constitutional: well developed, well nourished and + ill appearing; no acute distress Eyes: PERRL, conjunctivae normal, anicteric sclerae ENMT: external ear and nose normal, oropharynx normal Neck: trachea midline, no thyromegaly Respiratory: normal respiratory effort; no respiratory distress Auscultation: lungs clear to auscultation bilaterally Cardiovascular: Rate/Rhythm: regular rate and regular rhythm Heart Sounds: no murmur Gastrointestinal (Abdomen): Inspection/Auscultation: normal bowel sounds; abdomen not distended Percussion/Palpation: + abdomen tender (Mildly right loin) and abdomen soft Musculoskeletal: No acute arthritis involving any joints Skin: no rashes, warm and dry Lymphatic: no cervical or axillary lymphadenopathy Results & Data Results & Data ([facility]) Vital Signs (Past 12 Hours) Vital Signs Temp Pulse Pulse Resp BP Pulse Ox 10/04/19 07:45 37.1 C 84 19 126/79 95 10/04/19 04:00 37.7 C H 87 16 121/74 95 10/03/19 23:39 82 10/03/19 23:30 37.7 C H 85 16 116/75 96 Medications Administered Current Inpatient Medications Acetaminophen (Acetaminophen 325 Mg Tab) 650 mg PO Q4H PRN PRN Reason: Pain or Fever Stop: 11/01/19 02:48 Last Admin: 10/04/19 08:00 Dose: 650 mg Documented by: Calcium Carbonate (Calcium Carbonate 500 Mg Chewable Tab) 500 mg PO TID PRN PRN Reason: Indigestion Stop: 11/02/19 22:04 Last Admin: 10/03/19 22:09 Dose: 500 mg Documented by: Cyanocobalamin (Cyanocobalamin 500 Mcg Tablet (Vitamin B-12)) 500 mcg PO DAILY TEREZA Stop: 11/01/19 08:59 Last Admin: 10/04/19 08:01 Dose: 500 mcg Documented by: Diphenhydramine HCl (Diphenhydramine Hcl 25 Mg Cap) 25 mg PO Q6H PRN PRN Reason: Rash Stop: 11/01/19 07:59 Levofloxacin/Dextrose (Levaquin/D5w) 750 mg in 150 mls @ 100 mls/hr IV Q24H TEREZA Stop: 10/14/19 07:59 Last Admin: 10/04/19 10:34 Dose: 100 mls/hr Documented by: Morphine Sulfate (Morphine Sulfate 4 Mg/Ml 1 Ml Carp\Vial) 4 mg IV Q4H PRN PRN Reason: Pain Stop: 10/16/19 16:15 Last Admin: 10/04/19 08:01 Dose: 4 mg Documented by: Ondansetron HCl (Ondansetron Inj 2 Mg/Ml 2 Ml Vial) 4 mg IV Q6H PRN PRN Reason: Nausea Stop: 11/01/19 02:48 Last Admin: 10/02/19 07:35 Dose: 4 mg Documented by: Oxycodone/Acetaminophen (Oxycodone/Acetaminophen 5mg/325mg Tab) 1 tab PO Q4H PRN PRN Reason: Pain Stop: 10/18/19 11:07 Phenazopyridine HCl (Phenazopyridine Hcl 200 Mg Tab) 200 mg PO TID PRN PRN Reason: Dysuria Stop: 11/01/19 07:59 Last Admin: 10/02/19 08:44 Dose: 200 mg Documented by: Tamsulosin HCl (Tamsulosin Hcl 0.4 Mg Cap) 0.4 mg PO DAILY TEREZA Stop: 11/01/19 08:59 Last Admin: 10/04/19 08:01 Dose: 0.4 mg Documented by: Vitamin D (Cholecalciferol 1,000 Units 25 Mcg Tab) 1,000 units PO DAILY TEREZA Stop: 11/01/19 08:59 Last Admin: 10/04/19 08:01 Dose: 1,000 units Documented by: (1) Sepsis Sepsis acute organ dysfunction status: with acute organ dysfunction Sepsis type: sepsis due to unspecified organism Severe sepsis acute organ dysfunction type: encephalopathy Severe sepsis shock status: without septic shock Qualified Code(s): A41.9 - Sepsis, unspecified organism; R65.20 - Severe sepsis without septic shock; G93.40 - Encephalopathy, unspecified (2) Urinary tract infection Hematuria presence: with hematuria Urinary tract infection type: acute cystitis Qualified Code(s): N30.01 - Acute cystitis with hematuria
--- NOTE | 2019-10-05 08:09 | Discharge Summary ---
Date of Service October 05, 2019 Admission HPI Per Admitting Provider DICTATED BY: Malcolm Gross MD DATE OF ADMISSION: 10/01/2019 CHIEF COMPLAINT: Sepsis. HISTORY OF PRESENT ILLNESS: This is a 39-year-old male with past medical history significant for anxiety, panic disorder, and kidney stones. The patient has history of kidney stones, came to family doctor on 09/30/2019 because of right flank pain. The patient states on Saturday morning, he woke up, he noticed some pinkish urine and on Saturday, he had severe right flank pain and on Saturday started having blood clots and went to PCP's office and CT scan of the abdomen and pelvis was done which showed nonobstructive nephrolithiasis, dilated left ureter to the level of urinary bladder, limited assessment to the stricture, possible focal mass of the left ureterovesical junction. Follow up cystoscopy and ureteroscopy recommended, so the patient on 10/01/2019 went to [place] and had a cystoscopy done. The bladder mucosa showed several areas with raised lesions of unclear significance. Several areas of erythema were noted in the bladder mucosa. Ureteral orifices are of normal position and configuration and the bladder washing was performed to obtain cytology specimen and formal endoscopic evaluation in the Operating Room was recommended and the patient was discharged home. The patient states after coming home, he suddenly felt that he is going to . He could not move. He was passing out in and out and also had severe pain in the right flank region. Finally was able to call and was brought in here. T-max is 39.4. He is tachycardic and the heart rates in the 120s. Blood pressure was okay. White count was okay. Magnesium was 1.5. Urine was positive for +3 blood and +3 leukocyte esterase and +3 bacteria. Chest x-ray was okay. The patient was started on Invanz because of ALLERGIC TO PENICILLIN. Given fluids and given morphine for pain. States his pain is coming back. Currently resting comfortably. Still spiking temperatures, getting Motrin by the ER. The patient complains of some mild headache and dizziness and some blurred visions and some shortness of breath attributes for panic disorder. He has some runny nose attributes to allergies. He has cough going on for last 1 month. Denies any earache. No sore throat. No loss of sense of smell or taste. During this episode, he had 1 episode of chest pain, but that is resolved now Has burning micturition. In the ER, his urine was clear. Normal bladder movements. Currently no rash, no swelling in the legs. The patient says one of his family member had COVID and he was exposed to him before he was diagnosed, but it was about 6 weeks ago. Admission Exam Per Admitting Provider GENERAL: The patient is of moderate build, not in acute distress. VITAL SIGNS: T-max 39.4, pulse 112, respiratory rate 19, blood pressure 115/66, oxygen 94% on room air. HEENT: No pallor, no icterus. NECK: No JVD, no neck masses. CARDIOVASCULAR SYSTEM: S1, S2 heard. Regular rate and rhythm. No murmur, no gallop. RESPIRATORY SYSTEM: Normal AP diameter. No accessory muscle use. No wheezing, no crackles. ABDOMEN: Soft, bowel sounds present. Mild diffuse discomfort. No guarding, no rigidity. No distention. CENTRAL NERVOUS SYSTEM: Cranial nerves II-XII grossly intact, nonfocal. EXTREMITIES: No edema, no erythema. Principal Diagnosis Sepsis secondary to E. coli bacteremia, UTI, urinary bladder lesion-Urine Cytology showed Atypical Urothelial cells Discharge Exam Constitutional well developed, well nourished and + ill appearing; no acute distress Eyes PERRL, conjunctivae normal, anicteric sclerae ENMT external ear and nose normal, oropharynx normal Neck trachea midline, no thyromegaly Respiratory normal respiratory effort; no respiratory distress Auscultation: lungs clear to auscultation bilaterally Cardiovascular Rate/Rhythm: regular rate and regular rhythm Heart Sounds: no murmur Gastrointestinal (Abdomen) Inspection/Auscultation: normal bowel sounds; abdomen not distended Percussion/Palpation: + abdomen tender (Mildly right loin) and abdomen soft Skin no rashes, warm and dry Lymphatic no cervical or axillary lymphadenopathy Discharge Data Allergies Allergy/AdvReac Type Severity Reaction Status Date / Time bee venom protein (honey bee) Allergy Severe ANAPHYLAXIS Verified 10/01/19 23:36 Penicillins Allergy Severe projectile Verified 10/01/19 23:36 vomiting Consultations 10/01/19 23:52 ED Decision to Admit Stat Hospital Course (1) Sepsis: Presented with fever, chills and profound weakness and met sepsis criteria on admission Status post cystoscopy on 10/01/2019 noted to have a bladder lesion and cytology has been pending Has UTI with urine blood culture growing gram-negative bacilli Has been on ertapenem and awaiting sensitivity-as below Has been feeling a lot better with decreasing symptoms Denies any symptoms and wants to go home Gram-negative bacteremia Urine and blood culture grew E. coli sensitive to quinolones Will start Levaquin and he will be discharged this afternoon to complete a total of 14 days course (2) Urinary tract infection: Status post cystoscopy on 10/01/2019 Presented with dysuria and frequency with hematuria Hematuria has been resolved Urine culture is growing gram-negative bacilli and blood culture is growing gram-negative bacilli 1 out of 2 Urine culture grew E. coli sensitive to quinolones and resistant to cephalosporins Will give Levaquin to finish the course of 14 days of antibiotic in total (3) Kidney stone on right side: No pain (4) Lesion of urinary bladder: Presented to [place] with hematuria Underwent cystoscopy which showed bladder lesion Cytology showed atypical urothelial cells He supposed to have formal cystoscopy sometime in the near future Complains some pain at the loin Wants to see local Urologist. (5) JORDI (generalized anxiety disorder): Has generalized anxiety disorder with panic attacks Denies any acute symptoms DVT prophylaxis SCDs Increase ambulation CODE STATUS Full Discharge home this afternoon Total Time Total Time Spent Total Time Spent (In Minutes): 40 minutes Total Time Includes: Examination of the Patient, Discharge Planning, Medication Reconciliation and Communication With Other Providers Discharge Plan Discharge Items Patient Disposition: Home - Self-Care Reason For Visit: SEPSIS Discharge Diagnosis: Sepsis secondary to E. coli bacteremia, UTI, urinary bladder lesion-Urine Cytology showed Atypical Urothelial cells Condition on Discharge: Good Activity: Resume your previous activity Non-emergency contact: Primary Care Provider Call non-emergency contact if: you have any medication questions and your symptoms worsen Follow-up/Referrals: Brent Cagle MD [Outside Practitioners] - 10/06/19 12:20 pm (Your PCPs office will call with an appointment within 7 days. Keep appointment with the urologist.) PCP,NO [Primary Care Provider] - Diet: Regular Addtl Attending Provider Instructions: Try to drink more fluid Notify your urologist if more blood in the urine Pending Studies at Discharge: No Stand-Alone Forms: [employer] [facility], Smoking Cessation Medications and DC Order Prescriptions: New oxycodone-acetaminophen [Percocet] 5-325 mg Tablet 1 tab PO Q4H PRN (Reason: pain) 3 Days Qty: 15 RF: 0 levofloxacin [Levaquin] 750 mg tablet 750 mg PO DAILY 10 Days Qty: 10 RF: 0 Lactinex 1 million cell tablet,chewable 1 tab PO TID Qty: 30 RF: 0 promethazine 12.5 mg tablet 12.5 mg PO Q6H PRN (Reason: allergy symptoms) Qty: 20 RF: 0 Continued hydrocodone-acetaminophen 5-325 mg tablet 1 tab PO DIRECTED PRN (Reason: Pain) RF: 0 cyanocobalamin (vitamin B-12) [Vitamin B-12] 1,000 mcg Tablet 0 mcg PO DAILY RF: 0 tamsulosin 0.4 mg capsule 0.4 mg PO DAILY RF: 0 cranberry 500 mg Capsule 500 mg PO DAILY RF: 0 cholecalciferol (vitamin D3) [Vitamin D3] 25 mcg (1,000 unit) Capsule 0 mcg PO DAILY RF: 0 Discontinued ondansetron HCl 4 mg tablet 4 mg PO DIRECTED PRN (Reason: Nausea) RF: 0 Discharge Orders: Discharge Order (Routine); Ordered 10/04/19 Ordered By: Roger Ngo/Other Patient Handouts: Urinary Tract Infections in Men, Understanding Urinary Tract Infections UTIs, Understanding Kidney Stones, Preventing Kidney Stones, Sepsis, Understanding Sepsis Admission Data Admit Date/Time: 10/02/19 00:38 Attending Provider: Roger Doan Admit Provider: Malcolm Gross Primary Care Provider: PCP,NO Other Providers: Malcolm Gross Other Interventions: Discharge Summary Assessment (RN) Last Done: 10/04/19 14:48
--- NOTE | 2019-10-05 10:05 | Electrocardiogram Report ---
Test Reason : Blood Pressure : / mmHG Vent. Rate : 074 BPM Atrial Rate : 074 BPM P-R Int : 176 ms QRS Dur : 092 ms QT Int : 390 ms P-R-T Axes : 039 -17 015 degrees QTc Int : 432 ms Normal sinus rhythm Normal ECG When compared with ECG of 01-OCT-2019 21:51, Vent. rate has decreased BY 49 BPM Otherwise no significant change Confirmed by Juan Lee ([id number]) on 10/05/2019 10:05:41 AM Referred By: REFERRED SELF Confirmed By:Juan Lee
== END 2019-10-04 15:21 | disposition home or self-care (01) | DRG 872 ==
LOC: ED 20:55 → 2S 10-02 00:38